=== PATIENT | male | born 1975 | race Caucasian/White ===

== ENCOUNTER → 2019-04-09 | Outpatient (REF) | payer OTHER ==
[2019-04-09 20:16] LABS: BLOOD UREA NITROGEN 5 MG/DL (7-18); CALCIUM LEVEL 8.9 MG/DL (8.5-10.1); CARBON DIOXIDE LEVEL 29 MEQ/L (21-32); CHLORIDE LEVEL 103 MEQ/L (98-107); GLOMERULAR FILTRATION RATE > 60.0 (>60); GLUCOSE, FASTING 81 MG/DL (70-100); POTASSIUM SERUM 4.3 MEQ/L (3.5-5.1); SODIUM LEVEL 140 MEQ/L (136-145)
[2019-04-09 21:22] LABS: HIV 1&2 SCREEN CENTAUR NEGATIVE (NEGATIVE)
[2019-04-11 09:52] LABS: HEPATITIS B SURFACE ANTIGEN NEGATIVE (NEGATIVE)
[2019-04-11 10:17] LABS: HEPATITIS B CORE ANTIBODY IGM NEGATIVE (NEGATIVE); HEPATITIS C VIRUS ABY INDEX 0.1 INDEX (<0.8)
[2019-04-11 10:30] LABS: HEPATITIS A ANTIBODY IGM NEGATIVE (NEGATIVE)
== END ==
LOC: M SFHCPLAZ 15:48
PROVIDERS: ATTEND Family Medicine
DX: Z11.3 Encounter for screening for infections with a predominantly sexual mode of transmission (principal); F10.10 Alcohol abuse, uncomplicated

== ENCOUNTER 2022-05-22 11:12 | Inpatient (IN) | payer MEDICAID, OTHER, SELFPAY ==
[~2022-05-22] VITALS: Ht 170.2 cm; Wt 91.6 kg
[2022-05-22] MEDS: FOLIC ACID 1 MG TAB PO SCH (09:00)
[2022-05-22] MEDS ORDERED: ONDANSETRON 4MG 2ML VIAL IV ONE (11:20)
[2022-05-22] MEDS: MORPHINE 4 MG/ML 1ML VIAL/SYRINGE IV PRN ×2 (11:30→12:04)
[2022-05-22] MEDS ORDERED: ACET-683 PO (11:39)
[2022-05-22] MEDS ORDERED: TRAZ-252 PO (11:40)
[2022-05-22] MEDS ORDERED: BOOSTRIX/ADACEL VACCINE (DIPHTH/PERTUSS/ACELL/TETANUS) 0.5ML SYR IM.IMMUN ONE (11:50)
[2022-05-22] MEDS: HYDROMORPHONE HCL 0.5 MG/ 0.5 ML SYRINGE (J1170 PER 1) IV PRN ×5 (12:29→20:09)
[2022-05-22 12:32] LABS: HEMATOCRIT 42.4 % (42.0-52.0); HEMOGLOBIN 14.8 g/dl (13.5-17.5); MEAN CORPUSCULAR HEMOGLOBIN 34.2 pg (27.0-33.0); MEAN CORPUSCULAR HGB CONC 34.9 g/dl (32.0-36.5); MEAN CORPUSCULAR VOLUME 97.9 fl (80.0-96.0); PLATELET COUNT, AUTOMATED 255 10^3/uL (150-450); RED BLOOD COUNT 4.33 10^6/uL (4.30-6.10); WHITE BLOOD COUNT 11.2 10^3/uL (4.0-10.0)
[2022-05-22 12:59] LABS: BLOOD UREA NITROGEN 10 MG/DL (7-18); CALCIUM LEVEL 9.3 MG/DL (8.5-10.1); CARBON DIOXIDE LEVEL 26 MEQ/L (21-32); CHLORIDE LEVEL 102 MEQ/L (98-107); ETHYL ALCOHOL (ETHANOL) < 0.003 % (0.000-0.010); GLOMERULAR FILTRATION RATE > 60.0 (>60); GLUCOSE, FASTING 99 MG/DL (70-100); SODIUM LEVEL 137 MEQ/L (136-145)
[2022-05-22 13:13] LABS: RSV AMPLIFICATION NEGATIVE (NEGATIVE)
[2022-05-22] MEDS ORDERED: NS 1,000 ML IV SCH (13:25)
[2022-05-22] MEDS ORDERED: HYDROMORPHONE HCL 0.5 MG/ 0.5 ML SYRINGE (J1170 PER 1) IV PRN ×2 (13:35→14:30)
[2022-05-22] MEDS ORDERED: MORPHINE 4 MG/ML 1ML VIAL/SYRINGE IV PRN (13:35)
[2022-05-22 13:46] LABS: INR 0.98; PROTHROMBIN TIME 13.4 SECONDS (12.7-14.5)
[2022-05-22 13:52] LABS: ALT/SGPT 30 U/L (12-78); BILIRUBIN,TOTAL 1.1 MG/DL (0.2-1.0); TOTAL PROTEIN 7.1 GM/DL (6.4-8.2)
[2022-05-22] MEDS ORDERED: HOME MED LIST COMPLETE! XX SCH (14:10)
[2022-05-22] MEDS ORDERED: MORPHINE 2 MG/ML 1ML VIAL IV PRN (14:30)
[2022-05-22] MEDS ORDERED: LORazepam 2 MG TAB PO PRN (14:55)
[2022-05-22] MEDS ORDERED: traZODone 100 MG TAB PO PRN (14:55)
[2022-05-22 15:30] VITALS: BP 151/95
[2022-05-22] MEDS: THIAMINE 100 MG TAB PO SCH ×2 (16:00→21:01)
[2022-05-22] MEDS ORDERED: KETOROLAC 60MG 2ML VIAL As Ordered ONE (17:55)
[2022-05-22] MEDS ORDERED: propofoL 200 MG/20 ML VIAL As Ordered ONE (17:55)
[2022-05-22] MEDS ORDERED: ONDANSETRON 4MG 2ML VIAL As Ordered ONE (17:55)
[2022-05-22] MEDS ORDERED: ROCURONIUM BROMIDE 50 MG/5 ML VIAL As Ordered ONE (17:55)
[2022-05-22] MEDS ORDERED: LIDOCAINE 2% INJ 100 MG/5 ML SYRINGE As Ordered ONE (17:55)
[2022-05-22] MEDS ORDERED: dexameTHASONE 4 MG/ML 1ML VIAL (J1100 PER 1MG) As Ordered ONE (17:55)
[2022-05-22] MEDS ORDERED: fentaNYL 250 MCG/5 ML INJECTION As Ordered ONE (17:55)
[2022-05-22] MEDS ORDERED: METOCLOPRAMIDE INJ 10MG/2ML VIAL (J2765 PER 1) As Ordered ONE (17:55)
[2022-05-22] MEDS ORDERED: MIDAZOLAM INJ 2MG/2ML VIAL (J2250 PER 1MG) As Ordered ONE (17:56)
[2022-05-22] MEDS ORDERED: BUPIVACAINE HCL 0.25% 10ML VIAL As Ordered ONE (18:18)
[2022-05-22] MEDS ORDERED: BUPIVACAINE LIPOSOME/PF 1.3% 20ML VIAL (13.3MG/ML)(EXPAREL) As Ordered ONE (18:18)
[2022-05-22] MEDS ORDERED: ceFAZolin 2 GM/D5W 50 ML IV BAG (J0690 PER 500MG) IV ONE (18:44)
[2022-05-22] MEDS ORDERED: ACETAMINOPHEN 1000MG 100ML IV BTL (OFIRMEV) (J0131 PER 10MG) As Ordered ONE (18:51)
[2022-05-22] MEDS ORDERED: SUGAMMADEX SODIUM 500 MG/5 ML VIAL (BRIDION) As Ordered ONE (19:14)
[2022-05-22] MEDS: MULTIVITAMINS/MINERALS THERAP 1 TAB PO SCH (19:22)
[2022-05-22] MEDS ORDERED: MEPERIDINE INJ 25 MG/ML VIAL (J2175) IV PRN (19:35)
[2022-05-22] MEDS ORDERED: ONDANSETRON 4MG 2ML VIAL IV PRN (19:45)
[2022-05-22] MEDS ORDERED: LR 1,000 ML IV SCH (19:45)
[2022-05-22] MEDS ORDERED: fentaNYL 100 MCG/2 ML INJECTION IV PRN (19:45)
[2022-05-22] MEDS: oxyCODONE 5MG TAB PO PRN ×2 (19:59→20:26)
[2022-05-22 20:40] VITALS: BP 157/96
[2022-05-22 20:55] VITALS: BP 156/97
[2022-05-22] MEDS: NICOTINE 21MG/24HR 1 EA TRANSDERMAL TD SCH (21:02)
[2022-05-22 21:25] VITALS: BP 147/93
[2022-05-22 22:00] VITALS: BP_SYST 137; BP_SYST 146; BP_DIAS 86; BP_DIAS 91
[2022-05-22] MEDS: CYCLOBENZAPRINE 5MG TABLET PO PRN (22:16)
[2022-05-22] MEDS: MORPHINE 2 MG/ML 1ML VIAL IV PRN (22:17)
[2022-05-22 23:00] VITALS: BP 137/86
[2022-05-23 01:00] VITALS: BP 142/90
[2022-05-23 02:00] VITALS: BP 141/90
[2022-05-23] MEDS: HYDROMORPHONE HCL 0.5 MG/ 0.5 ML SYRINGE (J1170 PER 1) IV PRN ×4 (02:03→14:02)
[2022-05-23] MEDS: ceFAZolin SOD 2 GM in IV 1 EA IV SCH ×2 (02:03→10:30)
[2022-05-23] MEDS: CYCLOBENZAPRINE 5MG TABLET PO PRN (04:54)
[2022-05-23 06:00] VITALS: BP 152/94
[2022-05-23 06:49] LABS: HEMATOCRIT 38.4 % (42.0-52.0); HEMOGLOBIN 13.1 g/dl (13.5-17.5); MEAN CORPUSCULAR HEMOGLOBIN 34.1 pg (27.0-33.0); MEAN CORPUSCULAR HGB CONC 34.1 g/dl (32.0-36.5); PLATELET COUNT, AUTOMATED 199 10^3/uL (150-450); RED BLOOD COUNT 3.84 10^6/uL (4.30-6.10); WHITE BLOOD COUNT 7.5 10^3/uL (4.0-10.0)
[2022-05-23 07:10] LABS: BLOOD UREA NITROGEN 13 MG/DL (7-18); CALCIUM LEVEL 8.6 MG/DL (8.5-10.1); CARBON DIOXIDE LEVEL 25 MEQ/L (21-32); CHLORIDE LEVEL 105 MEQ/L (98-107); CREATININE FOR GFR 0.91 MG/DL (0.70-1.30); GLOMERULAR FILTRATION RATE > 60.0 (>60); GLUCOSE, FASTING 122 MG/DL (70-100); POTASSIUM SERUM 3.8 MEQ/L (3.5-5.1); SODIUM LEVEL 137 MEQ/L (136-145)
[2022-05-23] MEDS ORDERED: ONDANSETRON 4MG 2ML VIAL IV PRN (08:00)
[2022-05-23] MEDS: MULTIVITAMINS/MINERALS THERAP 1 TAB PO SCH (08:18)
[2022-05-23] MEDS: THIAMINE 100 MG TAB PO SCH (08:18)
[2022-05-23] MEDS: FOLIC ACID 1 MG TAB PO SCH (08:18)
[2022-05-23] MEDS: MORPHINE 2 MG/ML 1ML VIAL IV PRN (08:35)
[2022-05-23] MEDS: NICOTINE 21MG/24HR 1 EA TRANSDERMAL TD SCH (09:00)
[2022-05-23] MEDS ORDERED: SERO50TA PO (12:14)
[2022-05-23] MEDS ORDERED: ACET650T15 PO (12:14)
[2022-05-23] MEDS ORDERED: XARE10TA PO (12:14)
[2022-05-23] MEDS ORDERED: OXYC1TAB23 PO (12:14)
[2022-05-23] MEDS ORDERED: ASPI-551 PO (12:14)
[2022-05-23] MEDS ORDERED: RIVAROXABAN 10MG TAB (XARELTO) PO SCH (18:00)
[2022-06-07] MEDS ORDERED: ASPIRIN 81MG ENTERIC TABLET PO SCH (09:00)
== END 2022-05-23 14:50 | disposition home or self-care (01) | DRG 308 ==
LOC: M ED 11:12 → M ED INP 13:25 → ENRESERV 14:37 → M MS5PR 15:20
PROVIDERS: ADMIT Internal Medicine; ATTEND Internal Medicine
PROC: 0QS7XZZ Reposition Left Upper Femur, External Approach (ICD-10-PCS; 2022-05-22)
PROC: 0QS706Z Reposition Left Upper Femur with Intramedullary Internal Fixation Device, Open Approach (ICD-10-PCS; principal; 2022-05-22 13:07)
DX: S72.145A Nondisplaced intertrochanteric fracture of left femur, initial encounter for closed fracture (principal); W10.8XXA Fall (on) (from) other stairs and steps, initial encounter; Y92.009 Unspecified place in unspecified non-institutional (private) residence as the place of occurrence of the external cause; G47.00 Insomnia, unspecified; F17.200 Nicotine dependence, unspecified, uncomplicated; F10.10 Alcohol abuse, uncomplicated; Z20.822 Contact with and (suspected) exposure to COVID-19

== ENCOUNTER → 2022-05-27 | Outpatient (CLI) | payer MEDICAID ==
[~2022-05-27] MED LIST: ACET-683 PO; ACET650T15 PO; ASPI-551 PO; OXYC1TAB23 PO; SERO50TA PO; TRAZ-252 PO; XARE10TA PO
== END ==
LOC: M SOG 13:36
PROVIDERS: ATTEND Orthopaedic Surgery
DX: S72.001A Fracture of unspecified part of neck of right femur, initial encounter for closed fracture (principal)

== ENCOUNTER → 2022-06-08 | Outpatient (CLI) | payer MEDICAID | LOC: M SOG 09:00 | PROVIDERS: ATTEND Orthopaedic Surgery | DX: S72.002D Fracture of unspecified part of neck of left femur, subsequent encounter for closed fracture with routine healing (principal) ==

== ENCOUNTER → 2022-06-21 | Outpatient (CLI) | payer MEDICAID | LOC: M SOG 09:09 | PROVIDERS: ATTEND Orthopaedic Surgery | DX: S72.002D Fracture of unspecified part of neck of left femur, subsequent encounter for closed fracture with routine healing (principal); Z96.698 Presence of other orthopedic joint implants ==

== ENCOUNTER → 2022-07-07 | Outpatient (CLI) | payer MEDICAID | LOC: M SOG 08:06 | PROVIDERS: ATTEND Orthopaedic Surgery | DX: S72.002D Fracture of unspecified part of neck of left femur, subsequent encounter for closed fracture with routine healing (principal) ==

== ENCOUNTER 2022-07-17 21:04 | Inpatient (IN) | payer MEDICAID, OTHER ==
[~2022-07-17] VITALS: Ht 167.6 cm; Wt 90.9 kg
[2022-07-17 21:26] LABS: BASO # 0.1 10^3/uL (0.0-0.2); BASO % 0.6 % (0.0-1.0); EOS # 0.1 10^3/uL (0.0-0.5); EOS % 1.2 % (0.0-3.0); HEMATOCRIT 43.5 % (42.0-52.0); HEMOGLOBIN 14.6 g/dl (13.5-17.5); LYMPH # 3.1 10^3/uL (1.5-5.0); LYMPH % 28.6 % (24.0-44.0); MEAN CORPUSCULAR HEMOGLOBIN 33.6 pg (27.0-33.0); MEAN CORPUSCULAR HGB CONC 33.6 g/dl (32.0-36.5); MEAN CORPUSCULAR VOLUME 100.2 fl (80.0-96.0); MONO # 0.7 10^3/uL (0.0-0.8); MONO % 6.7 % (2.0-8.0); NEUTROPHILS # 6.9 10^3/uL (1.5-8.5); NEUTROPHILS % 62.5 % (36.0-66.0); PLATELET COUNT, AUTOMATED 307 10^3/uL (150-450); RED BLOOD COUNT 4.34 10^6/uL (4.30-6.10)
[2022-07-17] MEDS ORDERED: MORPHINE 4 MG/ML 1ML VIAL/SYRINGE IV ONE (21:50)
[2022-07-17] MEDS ORDERED: HYDROMORPHONE HCL 0.5 MG/ 0.5 ML SYRINGE (J1170 PER 1) IV ONE ×2 (22:00→23:40)
[2022-07-17 22:37] LABS: BLOOD UREA NITROGEN 12 MG/DL (7-18); CARBON DIOXIDE LEVEL 20 MEQ/L (21-32); CHLORIDE LEVEL 103 MEQ/L (98-107); CREATININE FOR GFR 1.12 MG/DL (0.70-1.30); GLOMERULAR FILTRATION RATE > 60.0 (>60); GLUCOSE, FASTING 97 MG/DL (70-100); POTASSIUM SERUM 3.9 MEQ/L (3.5-5.1); SODIUM LEVEL 136 MEQ/L (136-145)
[2022-07-17 22:38] LABS: CALCIUM LEVEL 8.7 MG/DL (8.5-10.1)
[2022-07-17] MEDS ORDERED: fentaNYL 100 MCG/2 ML INJECTION IV PRN (23:15)
[2022-07-17] MEDS ORDERED: CYCL-707 PO (23:54)
[2022-07-17] MEDS ORDERED: HOME MED LIST COMPLETE! XX SCH (23:55)
[2022-07-18] VITALS (7 sets, daily range): BP systolic 135–156; BP diastolic 91–118
[2022-07-18] MEDS ORDERED: HYDROMORPHONE HCL 0.5 MG/ 0.5 ML SYRINGE (J1170 PER 1) IV ONE (01:25)
[2022-07-18] MEDS ORDERED: zolPIDEM TARTRATE 5 MG TAB PO ONE (02:00)
[2022-07-18 02:01] LABS: RSV AMPLIFICATION NEGATIVE (NEGATIVE)
[2022-07-18 02:12] LABS: ETHYL ALCOHOL (ETHANOL) 0.127 % (0.000-0.010)
[2022-07-18] MEDS: CYCLOBENZAPRINE 10MG TABLET PO PRN ×2 (02:20→11:49)
[2022-07-18] MEDS: MORPHINE 4 MG/ML 1ML VIAL/SYRINGE IV PRN ×3 (03:12→11:12)
[2022-07-18] MEDS ORDERED: KETOROLAC 30 MG/ML 1ML VIAL IV ONE (04:00)
[2022-07-18] MEDS ORDERED: MORPHINE 4 MG/ML 1ML VIAL/SYRINGE IV PRN (05:00)
[2022-07-18 05:52] LABS: HEMATOCRIT 39.3 % (42.0-52.0); HEMOGLOBIN 13.3 g/dl (13.5-17.5); MEAN CORPUSCULAR HEMOGLOBIN 33.3 pg (27.0-33.0); MEAN CORPUSCULAR HGB CONC 33.8 g/dl (32.0-36.5); MEAN CORPUSCULAR VOLUME 98.3 fl (80.0-96.0); PLATELET COUNT, AUTOMATED 245 10^3/uL (150-450); WHITE BLOOD COUNT 10.8 10^3/uL (4.0-10.0)
[2022-07-18 06:30] LABS: ALBUMIN 3.5 GM/DL (3.2-5.2); ALT/SGPT 34 U/L (12-78); BILIRUBIN,TOTAL 0.5 MG/DL (0.2-1.0); BLOOD UREA NITROGEN 12 MG/DL (7-18); CALCIUM LEVEL 8.6 MG/DL (8.5-10.1); CARBON DIOXIDE LEVEL 27 MEQ/L (21-32); CHLORIDE LEVEL 106 MEQ/L (98-107); CREATININE FOR GFR 1.01 MG/DL (0.70-1.30); GLOMERULAR FILTRATION RATE > 60.0 (>60); GLUCOSE, FASTING 112 MG/DL (70-100); POTASSIUM SERUM 4.3 MEQ/L (3.5-5.1); SODIUM LEVEL 138 MEQ/L (136-145); TOTAL PROTEIN 6.4 GM/DL (6.4-8.2)
[2022-07-18 12:21] LABS: HEMATOCRIT 39.7 % (42.0-52.0); HEMOGLOBIN 13.7 g/dl (13.5-17.5)
[2022-07-18] MEDS ORDERED: propofoL 200 MG/20 ML VIAL As Ordered ONE ×2 (12:25→18:48)
[2022-07-18] MEDS ORDERED: ROCURONIUM BROMIDE 50 MG/5 ML VIAL As Ordered ONE (12:25)
[2022-07-18] MEDS ORDERED: LIDOCAINE 2% 100MG/5ML SDV (FOR ANES.) As Ordered ONE (12:25)
[2022-07-18] MEDS ORDERED: MIDAZOLAM INJ 2MG/2ML VIAL (J2250 PER 1MG) As Ordered ONE ×3 (12:26→19:05)
[2022-07-18] MEDS ORDERED: ONDANSETRON 4MG 2ML VIAL As Ordered ONE (12:26)
[2022-07-18] MEDS ORDERED: fentaNYL 250 MCG/5 ML INJECTION As Ordered ONE (12:26)
[2022-07-18] MEDS ORDERED: dexameTHASONE 4 MG/ML 1ML VIAL (J1100 PER 1MG) As Ordered ONE (12:26)
[2022-07-18] MEDS ORDERED: MORPHINE 2 MG/ML 1ML VIAL IV ONE (12:50)
[2022-07-18] MEDS ORDERED: ceFAZolin 2 GM/D5W 50 ML IV BAG (J0690 PER 500MG) As Ordered ONE (13:50)
[2022-07-18] MEDS ORDERED: TRANEXAMIC ACID 100 MG/ML 10ML VIAL As Ordered ONE ×2 (13:50→19:17)
[2022-07-18] MEDS ORDERED: HYDROmorphone HCL 2MG/ML 1ML VIAL As Ordered ONE (13:52)
[2022-07-18] MEDS ORDERED: VECURONIUM BROMIDE 10MG VIAL As Ordered ONE (15:15)
[2022-07-18] MEDS ORDERED: BUPIVACAINE HCL 0.25% 10ML VIAL As Ordered ONE (18:44)
[2022-07-18] MEDS ORDERED: BUPIVACAINE LIPOSOME/PF 1.3% 20ML VIAL (13.3MG/ML)(EXPAREL) As Ordered ONE (18:44)
[2022-07-18] MEDS ORDERED: METHOCARBAMOL 1,000 MG/10 ML VIAL (J2800) As Ordered ONE (18:51)
[2022-07-18] MEDS ORDERED: KETOROLAC 60MG 2ML VIAL As Ordered ONE (18:58)
[2022-07-18] MEDS ORDERED: SUGAMMADEX SODIUM 500 MG/5 ML VIAL (BRIDION) As Ordered ONE (18:59)
[2022-07-18] MEDS ORDERED: HYDROMORPHONE HCL 0.5 MG/ 0.5 ML SYRINGE (J1170 PER 1) IV PRN (19:35)
[2022-07-18] MEDS ORDERED: oxyCODONE 5MG TAB PO PRN (19:35)
[2022-07-18] MEDS ORDERED: ONDANSETRON 4MG 2ML VIAL IV PRN (19:35)
[2022-07-18] MEDS ORDERED: fentaNYL 100 MCG/2 ML INJECTION IV PRN (19:35)
[2022-07-18] MEDS ORDERED: LR 1,000 ML IV SCH (19:35)
[2022-07-18 20:30] LABS: HEMATOCRIT 34.9 % (42.0-52.0)
[2022-07-18 20:47] LABS: HEMOGLOBIN 11.6 g/dl (13.5-17.5)
[2022-07-18] MEDS ORDERED: LR 1,000 ML IV ONE (22:35)
[2022-07-18] MEDS: RAMELTEON 8 MG TAB (ROZEREM) PO SCH (22:39)
[2022-07-19] VITALS (9 sets, daily range): BP systolic 125–134; BP diastolic 83–92
[2022-07-19] MEDS: CYCLOBENZAPRINE 10MG TABLET PO PRN ×3 (03:48→20:00)
[2022-07-19] MEDS: MORPHINE 4 MG/ML 1ML VIAL/SYRINGE IV PRN ×5 (03:48→23:58)
[2022-07-19 06:15] LABS: BASO % 0.1 % (0.0-1.0); HEMATOCRIT 27.8 % (42.0-52.0); LYMPH # 0.9 10^3/uL (1.5-5.0); LYMPH % 9.8 % (24.0-44.0); MEAN CORPUSCULAR HGB CONC 33.5 g/dl (32.0-36.5); MEAN CORPUSCULAR VOLUME 98.6 fl (80.0-96.0); NEUTROPHILS # 7.3 10^3/uL (1.5-8.5); NEUTROPHILS % 78.7 % (36.0-66.0); PLATELET COUNT, AUTOMATED 234 10^3/uL (150-450); RED BLOOD COUNT 2.82 10^6/uL (4.30-6.10); WHITE BLOOD COUNT 9.2 10^3/uL (4.0-10.0)
[2022-07-19 06:24] LABS: HEMOGLOBIN 9.3 g/dl (13.5-17.5)
[2022-07-19 06:59] LABS: ALBUMIN 2.7 GM/DL (3.2-5.2); ALT/SGPT 77 U/L (12-78); BILIRUBIN,TOTAL 0.9 MG/DL (0.2-1.0); BLOOD UREA NITROGEN 13 MG/DL (7-18); CALCIUM LEVEL 8.3 MG/DL (8.5-10.1); CARBON DIOXIDE LEVEL 23 MEQ/L (21-32); CHLORIDE LEVEL 104 MEQ/L (98-107); CREATININE FOR GFR 0.95 MG/DL (0.70-1.30); GLOMERULAR FILTRATION RATE > 60.0 (>60); GLUCOSE, FASTING 137 MG/DL (70-100); MAGNESIUM LEVEL 1.8 MG/DL (1.8-2.4); POTASSIUM SERUM 4.1 MEQ/L (3.5-5.1); SODIUM LEVEL 135 MEQ/L (136-145)
[2022-07-19] MEDS ORDERED: ACETAMINOPHEN TAB 650MG DOSE (2X325MG) PO ONE (07:00)
[2022-07-19] MEDS ORDERED: LORazepam 2 MG TAB PO PRN (11:20)
[2022-07-19] MEDS ORDERED: MORPHINE 2 MG/ML 1ML VIAL IV ONE (11:45)
[2022-07-19] MEDS: FOLIC ACID 1MG TAB PO SCH (11:47)
[2022-07-19] MEDS: THIAMINE 100 MG TAB PO SCH ×2 (11:47→19:59)
[2022-07-19] MEDS: MULTIVITAMINS/MINERALS THERAP 1 TAB PO SCH (11:47)
[2022-07-19] MEDS ORDERED: ACETAMINOPHEN TAB 650MG DOSE (2X325MG) PO PRN (19:05)
[2022-07-19] MEDS ORDERED: zolPIDEM TARTRATE 5 MG TAB PO PRN (19:05)
[2022-07-19] MEDS: RAMELTEON 8 MG TAB (ROZEREM) PO SCH (19:59)
[2022-07-20] VITALS (7 sets, daily range): BP systolic 113–128; BP diastolic 75–86
[2022-07-20] MEDS ORDERED: LR 1,000 ML IV SCH (02:00)
[2022-07-20] MEDS: CYCLOBENZAPRINE 10MG TABLET PO PRN ×3 (03:10→20:10)
[2022-07-20] MEDS ORDERED: MORPHINE 4 MG/ML 1ML VIAL/SYRINGE IV ONE (03:25)
[2022-07-20 06:27] LABS: HEMATOCRIT 23.1 % (42.0-52.0); HEMOGLOBIN 7.7 g/dl (13.5-17.5); MEAN CORPUSCULAR HEMOGLOBIN 33.2 pg (27.0-33.0); MEAN CORPUSCULAR HGB CONC 33.3 g/dl (32.0-36.5); MEAN CORPUSCULAR VOLUME 99.6 fl (80.0-96.0); PLATELET COUNT, AUTOMATED 181 10^3/uL (150-450); RED BLOOD COUNT 2.32 10^6/uL (4.30-6.10); WHITE BLOOD COUNT 7.5 10^3/uL (4.0-10.0)
[2022-07-20 07:07] LABS: BLOOD UREA NITROGEN 8 MG/DL (7-18); CALCIUM LEVEL 7.6 MG/DL (8.5-10.1); CARBON DIOXIDE LEVEL 27 MEQ/L (21-32); CHLORIDE LEVEL 106 MEQ/L (98-107); CREATININE FOR GFR 0.63 MG/DL (0.70-1.30); GLOMERULAR FILTRATION RATE > 60.0 (>60); GLUCOSE, FASTING 112 MG/DL (70-100); SODIUM LEVEL 138 MEQ/L (136-145)
[2022-07-20] MEDS: ASPIRIN 81MG ENTERIC TABLET PO SCH (08:37)
[2022-07-20] MEDS: THIAMINE 100 MG TAB PO SCH ×2 (08:37→20:10)
[2022-07-20] MEDS: MULTIVITAMINS/MINERALS THERAP 1 TAB PO SCH (08:37)
[2022-07-20] MEDS: FOLIC ACID 1MG TAB PO SCH (08:37)
[2022-07-20] MEDS: HEPARIN SOD (PORCINE) 5000UNITS/ML 1ML VIAL/SYRINGE SC SCH ×3 (08:38→20:10)
[2022-07-20] MEDS: MORPHINE 4 MG/ML 1ML VIAL/SYRINGE IV PRN (08:38)
[2022-07-20 09:08] LABS: HEMATOCRIT 25.2 % (42.0-52.0); HEMOGLOBIN 8.4 g/dl (13.5-17.5)
[2022-07-20 09:56] LABS: PERCENT SATURATION 9.5 % (19.7-50.0)
[2022-07-20] MEDS ORDERED: PERCOCET 5MG/325MG TAB PO ONE (11:05)
[2022-07-20] MEDS ORDERED: HYDROMORPHONE HCL 0.5 MG/ 0.5 ML SYRINGE (J1170 PER 1) IV ONE (11:05)
[2022-07-20] MEDS: KETOROLAC 30 MG/ML 1ML VIAL IV SCH ×2 (11:22→17:18)
[2022-07-20] MEDS: PERCOCET 5MG/325MG TAB PO PRN ×2 (16:12→20:10)
[2022-07-20 17:50] LABS: HEMATOCRIT 22.8 % (42.0-52.0); HEMOGLOBIN 7.7 g/dl (13.5-17.5)
[2022-07-20] MEDS: traZODone 100 MG TAB PO SCH (20:10)
[2022-07-21] VITALS (9 sets, daily range): BP systolic 108–133; BP diastolic 64–89
[2022-07-21] MEDS: KETOROLAC 30 MG/ML 1ML VIAL IV SCH ×5 (00:33→23:12)
[2022-07-21 00:34] LABS: HEMATOCRIT 20.4 % (42.0-52.0)
[2022-07-21] MEDS: CYCLOBENZAPRINE 10MG TABLET PO PRN ×2 (05:20→18:52)
[2022-07-21] MEDS: PERCOCET 5MG/325MG TAB PO PRN ×5 (05:21→23:11)
[2022-07-21 05:57] LABS: MEAN CORPUSCULAR HEMOGLOBIN 33.8 pg (27.0-33.0); MEAN CORPUSCULAR HGB CONC 33.3 g/dl (32.0-36.5); MEAN CORPUSCULAR VOLUME 101.4 fl (80.0-96.0); PLATELET COUNT, AUTOMATED 183 10^3/uL (150-450); RED BLOOD COUNT 2.07 10^6/uL (4.30-6.10); WHITE BLOOD COUNT 4.4 10^3/uL (4.0-10.0)
[2022-07-21 06:37] LABS: BLOOD UREA NITROGEN 10 MG/DL (7-18); CARBON DIOXIDE LEVEL 30 MEQ/L (21-32); CHLORIDE LEVEL 106 MEQ/L (98-107); CREATININE FOR GFR 0.72 MG/DL (0.70-1.30); GLOMERULAR FILTRATION RATE > 60.0 (>60); GLUCOSE, FASTING 107 MG/DL (70-100); POTASSIUM SERUM 4.3 MEQ/L (3.5-5.1); SODIUM LEVEL 139 MEQ/L (136-145)
[2022-07-21 06:38] LABS: CALCIUM LEVEL 8.4 MG/DL (8.5-10.1)
[2022-07-21] MEDS ORDERED: HYDROMORPHONE HCL 0.5 MG/ 0.5 ML SYRINGE (J1170 PER 1) IV ONE (07:25)
[2022-07-21] MEDS: THIAMINE 100 MG TAB PO SCH ×2 (08:05→22:24)
[2022-07-21] MEDS: ASPIRIN 81MG ENTERIC TABLET PO SCH (08:05)
[2022-07-21] MEDS: FOLIC ACID 1MG TAB PO SCH (08:05)
[2022-07-21] MEDS: MULTIVITAMINS/MINERALS THERAP 1 TAB PO SCH (08:05)
[2022-07-21] MEDS: HEPARIN SOD (PORCINE) 5000UNITS/ML 1ML VIAL/SYRINGE SC SCH ×2 (08:06→21:00)
[2022-07-21 14:17] LABS: HEMATOCRIT 23.9 % (42.0-52.0); HEMOGLOBIN 8.1 g/dl (13.5-17.5)
[2022-07-21] MEDS ORDERED: COVID-19 VACC, MRNA(PFIZER)/PF 30MCG 0.3ML VIAL (EUA) IM ONE (17:00)
[2022-07-21 17:46] LABS: HEMATOCRIT 23.8 % (42.0-52.0)
[2022-07-21] MEDS: ONDANSETRON 4MG ORAL DISINTEGRATING TAB PO PRN (21:57)
[2022-07-21] MEDS: traZODone 100 MG TAB PO SCH (22:25)
[2022-07-21] MEDS: SENOKOT S TAB PO PRN (22:25)
[2022-07-22 05:37] VITALS: BP 124/81
[2022-07-22] MEDS: CYCLOBENZAPRINE 10MG TABLET PO PRN ×3 (05:41→22:17)
[2022-07-22] MEDS: KETOROLAC 30 MG/ML 1ML VIAL IV SCH (05:42)
[2022-07-22] MEDS: PERCOCET 5MG/325MG TAB PO PRN ×4 (05:43→22:17)
[2022-07-22 05:57] LABS: HEMATOCRIT 23.8 % (42.0-52.0); MEAN CORPUSCULAR HEMOGLOBIN 33.1 pg (27.0-33.0); MEAN CORPUSCULAR HGB CONC 33.6 g/dl (32.0-36.5); MEAN CORPUSCULAR VOLUME 98.3 fl (80.0-96.0); PLATELET COUNT, AUTOMATED 222 10^3/uL (150-450); RED BLOOD COUNT 2.42 10^6/uL (4.30-6.10); WHITE BLOOD COUNT 5.9 10^3/uL (4.0-10.0)
[2022-07-22 06:00] VITALS: BP 124/81
[2022-07-22 06:38] LABS: BLOOD UREA NITROGEN 12 MG/DL (7-18); CALCIUM LEVEL 8.7 MG/DL (8.5-10.1); CARBON DIOXIDE LEVEL 27 MEQ/L (21-32); CHLORIDE LEVEL 107 MEQ/L (98-107); CREATININE FOR GFR 0.73 MG/DL (0.70-1.30); GLOMERULAR FILTRATION RATE > 60.0 (>60); GLUCOSE, FASTING 102 MG/DL (70-100); POTASSIUM SERUM 4.2 MEQ/L (3.5-5.1); SODIUM LEVEL 139 MEQ/L (136-145)
[2022-07-22] MEDS: ASPIRIN 81MG ENTERIC TABLET PO SCH (08:53)
[2022-07-22] MEDS: FERROUS SULFATE 325MG TAB PO SCH (08:53)
[2022-07-22] MEDS: MULTIVITAMINS/MINERALS THERAP 1 TAB PO SCH (08:53)
[2022-07-22] MEDS: ASCORBIC ACID 500 MG TAB PO SCH (08:53)
[2022-07-22] MEDS: FOLIC ACID 1MG TAB PO SCH (08:53)
[2022-07-22] MEDS: HEPARIN SOD (PORCINE) 5000UNITS/ML 1ML VIAL/SYRINGE SC SCH ×2 (08:54→21:00)
[2022-07-22] MEDS: ONDANSETRON 4MG ORAL DISINTEGRATING TAB PO PRN ×2 (08:54→22:47)
[2022-07-22] MEDS ORDERED: HYDROMORPHONE HCL 0.5 MG/ 0.5 ML SYRINGE (J1170 PER 1) IV ONE ×2 (10:00→16:00)
[2022-07-22] MEDS ORDERED: HYDROmorphone 2 MG TAB PO PRN (10:10)
[2022-07-22] MEDS: IBUPROFEN 400MG TAB PO SCH ×2 (12:36→17:25)
[2022-07-22 14:00] VITALS: BP 143/89
[2022-07-22] MEDS: BISACODYL 5 MG TAB PO PRN (14:17)
[2022-07-22 17:33] LABS: HEMATOCRIT 26.6 % (42.0-52.0); HEMOGLOBIN 8.8 g/dl (13.5-17.5)
[2022-07-22 18:00] VITALS: BP 138/90
[2022-07-22] MEDS: traZODone 100 MG TAB PO SCH (22:17)
[2022-07-22] MEDS: SENOKOT S TAB PO PRN (22:21)
[2022-07-23] MEDS: ONDANSETRON 4MG ORAL DISINTEGRATING TAB PO PRN ×2 (04:54→22:17)
[2022-07-23] MEDS: PERCOCET 5MG/325MG TAB PO PRN ×3 (04:55→22:18)
[2022-07-23 05:33] VITALS: BP 131/68
[2022-07-23 05:58] LABS: HEMATOCRIT 25.2 % (42.0-52.0); HEMOGLOBIN 8.8 g/dl (13.5-17.5); MEAN CORPUSCULAR HEMOGLOBIN 33.8 pg (27.0-33.0); MEAN CORPUSCULAR HGB CONC 34.9 g/dl (32.0-36.5); MEAN CORPUSCULAR VOLUME 96.9 fl (80.0-96.0); PLATELET COUNT, AUTOMATED 267 10^3/uL (150-450); WHITE BLOOD COUNT 6.6 10^3/uL (4.0-10.0)
[2022-07-23 06:20] LABS: BLOOD UREA NITROGEN 9 MG/DL (7-18); CALCIUM LEVEL 8.9 MG/DL (8.5-10.1); CARBON DIOXIDE LEVEL 29 MEQ/L (21-32); CHLORIDE LEVEL 101 MEQ/L (98-107); CREATININE FOR GFR 0.76 MG/DL (0.70-1.30); GLOMERULAR FILTRATION RATE > 60.0 (>60); GLUCOSE, FASTING 108 MG/DL (70-100); POTASSIUM SERUM 4.3 MEQ/L (3.5-5.1); SODIUM LEVEL 134 MEQ/L (136-145)
[2022-07-23] MEDS: CYCLOBENZAPRINE 10MG TABLET PO PRN ×2 (06:23→14:49)
[2022-07-23] MEDS: FERROUS SULFATE 325MG TAB PO SCH (08:35)
[2022-07-23] MEDS: ASCORBIC ACID 500 MG TAB PO SCH (08:35)
[2022-07-23] MEDS: MULTIVITAMINS/MINERALS THERAP 1 TAB PO SCH (08:35)
[2022-07-23] MEDS: MOM 30ML SUSPENSION UDC PO PRN (08:35)
[2022-07-23] MEDS: ASPIRIN 81MG ENTERIC TABLET PO SCH (08:35)
[2022-07-23] MEDS: FOLIC ACID 1MG TAB PO SCH (08:35)
[2022-07-23] MEDS: SENOKOT S TAB PO PRN (08:35)
[2022-07-23] MEDS: IBUPROFEN 400MG TAB PO SCH ×3 (08:35→18:07)
[2022-07-23] MEDS: HEPARIN SOD (PORCINE) 5000UNITS/ML 1ML VIAL/SYRINGE SC SCH ×2 (08:36→21:00)
[2022-07-23] MEDS ORDERED: MIRALAX *UNIT DOSE* 17GM PACKET PO PRN ×2 (11:20→11:25)
[2022-07-23] MEDS ORDERED: MAGNESIUM CITRATE 300 ML BTL PO ONE (11:25)
[2022-07-23] MEDS: traZODone 100 MG TAB PO SCH (22:17)
[2022-07-24] MEDS: CYCLOBENZAPRINE 10MG TABLET PO PRN ×3 (03:13→21:08)
[2022-07-24] MEDS: PERCOCET 5MG/325MG TAB PO PRN ×3 (03:20→18:37)
[2022-07-24] MEDS: HYDROmorphone 4MG TABLET PO PRN ×4 (05:14→22:10)
[2022-07-24 05:20] VITALS: BP 127/71
[2022-07-24 06:09] LABS: HEMATOCRIT 24.9 % (42.0-52.0); HEMOGLOBIN 8.3 g/dl (13.5-17.5); MEAN CORPUSCULAR HEMOGLOBIN 32.4 pg (27.0-33.0); MEAN CORPUSCULAR HGB CONC 33.3 g/dl (32.0-36.5); MEAN CORPUSCULAR VOLUME 97.3 fl (80.0-96.0); PLATELET COUNT, AUTOMATED 295 10^3/uL (150-450); RED BLOOD COUNT 2.56 10^6/uL (4.30-6.10); WHITE BLOOD COUNT 6.8 10^3/uL (4.0-10.0)
[2022-07-24 06:47] LABS: BLOOD UREA NITROGEN 11 MG/DL (7-18); CALCIUM LEVEL 8.6 MG/DL (8.5-10.1); CARBON DIOXIDE LEVEL 30 MEQ/L (21-32); CHLORIDE LEVEL 103 MEQ/L (98-107); CREATININE FOR GFR 0.83 MG/DL (0.70-1.30); GLOMERULAR FILTRATION RATE > 60.0 (>60); GLUCOSE, FASTING 113 MG/DL (70-100); POTASSIUM SERUM 4.2 MEQ/L (3.5-5.1); SODIUM LEVEL 137 MEQ/L (136-145)
[2022-07-24] MEDS: ASPIRIN 81MG ENTERIC TABLET PO SCH (08:12)
[2022-07-24] MEDS: FERROUS SULFATE 325MG TAB PO SCH (08:12)
[2022-07-24] MEDS: ASCORBIC ACID 500 MG TAB PO SCH (08:12)
[2022-07-24] MEDS: IBUPROFEN 400MG TAB PO SCH ×3 (08:13→17:19)
[2022-07-24] MEDS: FOLIC ACID 1MG TAB PO SCH (08:14)
[2022-07-24] MEDS: MULTIVITAMINS/MINERALS THERAP 1 TAB PO SCH (08:14)
[2022-07-24] MEDS: HEPARIN SOD (PORCINE) 5000UNITS/ML 1ML VIAL/SYRINGE SC SCH ×2 (08:26→21:00)
[2022-07-24] MEDS: ONDANSETRON 4MG ORAL DISINTEGRATING TAB PO PRN ×2 (12:04→22:05)
[2022-07-24] MEDS ORDERED: traZODone 100 MG TAB PO SCH (21:00)
[2022-07-24] MEDS: zolPIDEM TARTRATE 5 MG TAB PO SCH (21:09)
[2022-07-25] MEDS: PERCOCET 5MG/325MG TAB PO PRN ×2 (04:07→08:28)
[2022-07-25] MEDS: CYCLOBENZAPRINE 10MG TABLET PO PRN (05:45)
[2022-07-25] MEDS: HYDROmorphone 4MG TABLET PO PRN (05:45)
[2022-07-25] MEDS: MOM 30ML SUSPENSION UDC PO PRN (05:51)
[2022-07-25] MEDS: ONDANSETRON 4MG ORAL DISINTEGRATING TAB PO PRN (05:51)
[2022-07-25 06:16] LABS: HEMOGLOBIN 8.7 g/dl (13.5-17.5); MEAN CORPUSCULAR HEMOGLOBIN 33.2 pg (27.0-33.0); MEAN CORPUSCULAR HGB CONC 33.5 g/dl (32.0-36.5); MEAN CORPUSCULAR VOLUME 99.2 fl (80.0-96.0); PLATELET COUNT, AUTOMATED 341 10^3/uL (150-450); RED BLOOD COUNT 2.62 10^6/uL (4.30-6.10); WHITE BLOOD COUNT 5.5 10^3/uL (4.0-10.0)
[2022-07-25 06:56] LABS: BLOOD UREA NITROGEN 13 MG/DL (7-18); CALCIUM LEVEL 8.6 MG/DL (8.5-10.1); CARBON DIOXIDE LEVEL 30 MEQ/L (21-32); CHLORIDE LEVEL 104 MEQ/L (98-107); GLOMERULAR FILTRATION RATE > 60.0 (>60); GLUCOSE, FASTING 104 MG/DL (70-100); POTASSIUM SERUM 4.3 MEQ/L (3.5-5.1); SODIUM LEVEL 138 MEQ/L (136-145)
[2022-07-25] MEDS: FERROUS SULFATE 325MG TAB PO SCH (08:14)
[2022-07-25] MEDS: ASCORBIC ACID 500 MG TAB PO SCH (08:14)
[2022-07-25] MEDS: IBUPROFEN 400MG TAB PO SCH ×3 (08:14→17:32)
[2022-07-25] MEDS: MULTIVITAMINS/MINERALS THERAP 1 TAB PO SCH (08:14)
[2022-07-25] MEDS: FOLIC ACID 1MG TAB PO SCH (08:15)
[2022-07-25] MEDS: ASPIRIN 81MG ENTERIC TABLET PO SCH (08:15)
[2022-07-25] MEDS: HEPARIN SOD (PORCINE) 5000UNITS/ML 1ML VIAL/SYRINGE SC SCH ×2 (08:23→20:37)
[2022-07-25] MEDS: SENOKOT S TAB PO PRN (08:28)
[2022-07-25] MEDS ORDERED: oxyCODONE 15 MG CR TAB PO SCH (09:05)
[2022-07-25] MEDS ORDERED: NALOXONE INJ 0.4MG/1ML VIAL (J2310 PER 1MG) IV PRN (09:10)
[2022-07-25] MEDS ORDERED: oxyCODONE 5MG TAB PO PRN (09:10)
[2022-07-25] MEDS ORDERED: oxyCODONE 15 MG CR TAB PO ONE ×2 (09:20→12:00)
[2022-07-25] MEDS ORDERED: oxyCODONE 5MG TAB PO ONE ×3 (09:30→20:00)
[2022-07-25] MEDS ORDERED: ONDANSETRON 4MG ORAL DISINTEGRATING TAB SL ONE (12:00)
[2022-07-25] MEDS: BISACODYL 5 MG TAB PO PRN (14:56)
[2022-07-25] MEDS ORDERED: ONDANSETRON 4MG ORAL DISINTEGRATING TAB SL PRN (20:00)
[2022-07-25] MEDS: zolPIDEM TARTRATE 5 MG TAB PO SCH (20:36)
[2022-07-25] MEDS ORDERED: traZODone 100 MG TAB PO SCH (21:00)
[2022-07-26 05:37] VITALS: BP 152/90
[2022-07-26 05:47] LABS: HEMATOCRIT 27.9 % (42.0-52.0); HEMOGLOBIN 9.1 g/dl (13.5-17.5); MEAN CORPUSCULAR HEMOGLOBIN 32.5 pg (27.0-33.0); MEAN CORPUSCULAR HGB CONC 32.6 g/dl (32.0-36.5); MEAN CORPUSCULAR VOLUME 99.6 fl (80.0-96.0); PLATELET COUNT, AUTOMATED 431 10^3/uL (150-450); WHITE BLOOD COUNT 6.3 10^3/uL (4.0-10.0)
[2022-07-26 06:31] LABS: BLOOD UREA NITROGEN 13 MG/DL (7-18); CALCIUM LEVEL 8.8 MG/DL (8.5-10.1); CARBON DIOXIDE LEVEL 30 MEQ/L (21-32); CHLORIDE LEVEL 103 MEQ/L (98-107); CREATININE FOR GFR 0.86 MG/DL (0.70-1.30); GLOMERULAR FILTRATION RATE > 60.0 (>60); GLUCOSE, FASTING 108 MG/DL (70-100); POTASSIUM SERUM 4.5 MEQ/L (3.5-5.1); SODIUM LEVEL 138 MEQ/L (136-145)
[2022-07-26] MEDS: HEPARIN SOD (PORCINE) 5000UNITS/ML 1ML VIAL/SYRINGE SC SCH (07:56)
[2022-07-26] MEDS: MULTIVITAMINS/MINERALS THERAP 1 TAB PO SCH (08:00)
[2022-07-26] MEDS: FERROUS SULFATE 325MG TAB PO SCH (08:00)
[2022-07-26] MEDS: ASPIRIN 81MG ENTERIC TABLET PO SCH (08:00)
[2022-07-26] MEDS: ASCORBIC ACID 500 MG TAB PO SCH (08:00)
[2022-07-26] MEDS: FOLIC ACID 1MG TAB PO SCH (08:00)
[2022-07-26] MEDS: IBUPROFEN 400MG TAB PO SCH ×2 (08:01→11:48)
[2022-07-26] MEDS ORDERED: oxyCODONE 5MG TAB PO ONE ×2 (08:15→17:00)
[2022-07-26] MEDS ORDERED: OXYC-141 PO (11:28)
[2022-07-26] MEDS ORDERED: OXYC-1 PO (11:28)
[2022-07-26] MEDS ORDERED: SENN-52 PO (11:28)
[2022-07-26] MEDS ORDERED: MOM30SS2 PO (11:28)
[2022-07-26] MEDS ORDERED: TRAZ-257 PO (11:28)
[2022-07-26] MEDS ORDERED: ASPI-551 PO (11:28)
[2022-07-26] MEDS ORDERED: oxyCODONE 15 MG CR TAB PO ONE ×2 (12:00)
== END 2022-07-26 12:50 | disposition home or self-care (01) | DRG 308 ==
LOC: M ED 21:04 → EDBD 21:04 → M ED INP 07-18 01:33 → ENRESERV 07-18 02:12 → M MSPAV 07-18 02:45
PROVIDERS: ADMIT Family Medicine; ATTEND General Practice
PROC: 0QS734Z Reposition Left Upper Femur with Internal Fixation Device, Percutaneous Approach (ICD-10-PCS; 2022-07-18)
PROC: BQ11ZZZ Fluoroscopy of Left Hip (ICD-10-PCS; 2022-07-18)
PROC: 0QS706Z Reposition Left Upper Femur with Intramedullary Internal Fixation Device, Open Approach (ICD-10-PCS; principal; 2022-07-18 13:00)
PROC: 30233N1 Transfusion of Nonautologous Red Blood Cells into Peripheral Vein, Percutaneous Approach (ICD-10-PCS; 2022-07-22)
DX: S72.22XA Displaced subtrochanteric fracture of left femur, initial encounter for closed fracture (principal); W01.0XXA Fall on same level from slipping, tripping and stumbling without subsequent striking against object, initial encounter; Y92.009 Unspecified place in unspecified non-institutional (private) residence as the place of occurrence of the external cause; G47.00 Insomnia, unspecified; F17.210 Nicotine dependence, cigarettes, uncomplicated; Z20.822 Contact with and (suspected) exposure to COVID-19; Z79.899 Other long term (current) drug therapy; M97.8XXA Periprosthetic fracture around other internal prosthetic joint, initial encounter; Z96.642 Presence of left artificial hip joint; F10.939 Alcohol use, unspecified with withdrawal, unspecified; D62 Acute posthemorrhagic anemia; K59.00 Constipation, unspecified; T40.2X5A Adverse effect of other opioids, initial encounter; E87.1 Hypo-osmolality and hyponatremia

== ENCOUNTER → 2022-08-17 | Outpatient (CLI) | payer OTHER ==
[~2022-08-17] MED LIST changes: +CYCL-707 PO; +MOM30SS2 PO; +OXYC-1 PO; +OXYC-141 PO; +SENN-52 PO; +TRAZ-257 PO
== END ==
LOC: M SOG 11:41
PROVIDERS: ATTEND Orthopaedic Surgery
DX: S72.002D Fracture of unspecified part of neck of left femur, subsequent encounter for closed fracture with routine healing (principal)

== ENCOUNTER → 2022-09-16 | Outpatient (CLI) | payer OTHER, MEDICAID | LOC: M SOG 08:03 | PROVIDERS: ATTEND Orthopaedic Surgery | DX: S72.002D Fracture of unspecified part of neck of left femur, subsequent encounter for closed fracture with routine healing (principal) ==

== ENCOUNTER → 2022-10-19 | Outpatient (CLI) | payer OTHER, MEDICAID | LOC: M SOG 08:07 | PROVIDERS: ATTEND Orthopaedic Surgery | DX: S72.142D Displaced intertrochanteric fracture of left femur, subsequent encounter for closed fracture with routine healing (principal) ==

== ENCOUNTER → 2022-11-16 | Outpatient (CLI) | payer OTHER, MEDICAID | LOC: M SOG 09:40 | PROVIDERS: ATTEND Orthopaedic Surgery | DX: S72.22XD Displaced subtrochanteric fracture of left femur, subsequent encounter for closed fracture with routine healing (principal); W18.30XD Fall on same level, unspecified, subsequent encounter ==

== ENCOUNTER → 2023-01-04 | Outpatient (CLI) | payer OTHER, MEDICAID | LOC: M SOG 08:05 | PROVIDERS: ATTEND Orthopaedic Surgery | DX: S72.002A Fracture of unspecified part of neck of left femur, initial encounter for closed fracture (principal); X58.XXXA Exposure to other specified factors, initial encounter ==

== ENCOUNTER → 2023-03-25 | Outpatient (CLI) | payer OTHER, MEDICAID | LOC: M SOG 08:12 | PROVIDERS: ATTEND Orthopaedic Surgery | DX: S72.22XD Displaced subtrochanteric fracture of left femur, subsequent encounter for closed fracture with routine healing (principal) ==

== ENCOUNTER → 2023-04-19 | Outpatient (CLI) | payer OTHER ==
[2023-04-19 13:43] LABS: HEMATOCRIT 45.2 % (42.0-52.0); HEMOGLOBIN 15.2 g/dl (13.5-17.5); MEAN CORPUSCULAR HEMOGLOBIN 33.7 pg (27.0-33.0); MEAN CORPUSCULAR HGB CONC 33.6 g/dl (32.0-36.5); MEAN CORPUSCULAR VOLUME 100.2 fl (80.0-96.0); PLATELET COUNT, AUTOMATED 265 10^3/uL (150-450); RED BLOOD COUNT 4.51 10^6/uL (4.30-6.10); WHITE BLOOD COUNT 6.1 10^3/uL (4.0-10.0)
[2023-04-19 14:11] LABS: HEMOGLOBIN A1c 5.4 % (4.0-6.0)
[2023-04-19 14:17] LABS: ALBUMIN 3.8 G/DL (3.2-5.2); ALKALINE PHOSPHATASE 77 U/L (46-116); ALT/SGPT 22 U/L (7.0-40); AST/SGOT 18 U/L (<34); BILIRUBIN,TOTAL 0.7 MG/DL (0.3-1.2); BLOOD UREA NITROGEN 20 MG/DL (9-23); CALCIUM LEVEL 9.1 MG/DL (8.5-10.1); CARBON DIOXIDE LEVEL 28 MMOL/L (20-31); CHLORIDE LEVEL 104 MMOL/L (98-107); CHOLESTEROL LEVEL 196 MG/DL (<200); CHOLESTEROL RISK RATIO 3.07 (<5); CREATININE FOR GFR 0.89 MG/DL (0.70-1.30); GLOMERULAR FILTRATION RATE > 60.0 (>60); GLUCOSE, FASTING 100 MG/DL (60-100); HDL CHOLESTEROL 63.8 MG/DL (>40); LDL CHOLESTEROL 109.2 MG/DL (<100); NON-HDL-C 132.2 MG/DL; POTASSIUM SERUM 4.6 MMOL/L (3.5-5.1); SODIUM LEVEL 139 MMOL/L (136-145); THYROID STIMULATING HORMONE 0.779 uIU/ML (0.55-4.78); TOTAL 25(OH) VITAMIN D 77.2 NG/ML (20.0-100.0); TOTAL PROTEIN 6.6 G/DL (5.7-8.2); TRIGLYCERIDES LEVEL 115 MG/DL (<150)
[2023-04-19 14:19] LABS: FREE T4 1.05 NG/DL (0.89-1.76)
== END ==
LOC: M PLALAB 10:55
PROVIDERS: ATTEND Student in an Organized Health Care Education/Training Program
DX: F10.10 Alcohol abuse, uncomplicated (principal); S72.002D Fracture of unspecified part of neck of left femur, subsequent encounter for closed fracture with routine healing; F51.04 Psychophysiologic insomnia; Z13.1 Encounter for screening for diabetes mellitus; Z13.220 Encounter for screening for lipoid disorders

== ENCOUNTER → 2023-05-19 | Outpatient (CLI) | payer OTHER ==
[~2023-05-19] MED LIST changes: +BARIUM SULFATE 700 MG TABLET (E-Z-DISK) As Ordered ONE; +E-Z-GAS II EFFERVESCENT PACKET (SODIUM BICARB./CITRIC ACID/SIMETHICONE) As Ordered ONE; +E-Z-PAQUE 96% w/w SUSP 176GM BTL As Ordered ONE; +VARIBAR NECTAR 40% w/v 240ML SUSP BTL As Ordered ONE; +VARIBAR PUDDING 40% w/v 230ML TUBE As Ordered ONE
== END ==
LOC: M RAD 11:44
PROVIDERS: ATTEND Otolaryngology
DX: R13.19 Other dysphagia (principal)

== ENCOUNTER → 2023-05-26 | Outpatient (CLI) | payer OTHER ==
[~2023-05-26] MED LIST changes: -BARIUM SULFATE 700 MG TABLET (E-Z-DISK) As Ordered ONE; -E-Z-GAS II EFFERVESCENT PACKET (SODIUM BICARB./CITRIC ACID/SIMETHICONE) As Ordered ONE; -E-Z-PAQUE 96% w/w SUSP 176GM BTL As Ordered ONE; -VARIBAR NECTAR 40% w/v 240ML SUSP BTL As Ordered ONE; -VARIBAR PUDDING 40% w/v 230ML TUBE As Ordered ONE
== END ==
LOC: M SOG 07:55
PROVIDERS: ATTEND Orthopaedic Surgery
DX: S72.22XD Displaced subtrochanteric fracture of left femur, subsequent encounter for closed fracture with routine healing (principal)

== ENCOUNTER → 2023-06-22 | Outpatient (CLI) | payer OTHER | LOC: M PAIN 08:00 | PROVIDERS: ATTEND Anesthesiology | DX: M25.552 Pain in left hip (principal); M25.562 Pain in left knee; M79.2 Neuralgia and neuritis, unspecified; Z86.59 Personal history of other mental and behavioral disorders; Z88.8 Allergy status to other drugs, medicaments and biological substances; Z79.899 Other long term (current) drug therapy ==

== ENCOUNTER → 2023-08-26 | Outpatient (CLI) | payer OTHER | LOC: M SOG 08:16 | PROVIDERS: ATTEND Orthopaedic Surgery | DX: M25.552 Pain in left hip (principal); Z87.81 Personal history of (healed) traumatic fracture ==

== ENCOUNTER → 2023-09-14 | Outpatient (CLI) | payer OTHER ==
[~2023-09-14] MED LIST changes: +CALC500T31 PO; +E-Z-GAS II EFFERVESCENT PACKET (SODIUM BICARB./CITRIC ACID/SIMETHICONE) As Ordered ONE; +E-Z-HD 98% w/w 340GM SUSP BTL As Ordered ONE; +E-Z-PAQUE 96% w/w SUSP 176GM BTL As Ordered ONE; +GABA-282 PO; +MELO7.5T35 PO; +MULT400T10 PO; +PANT40TA29 PO; +QUET50TA4 PO
== END ==
LOC: M RAD 08:18
PROVIDERS: ATTEND Physician Assistant Medical
DX: R13.10 Dysphagia, unspecified (principal); K21.9 Gastro-esophageal reflux disease without esophagitis

== ENCOUNTER 2023-09-22 13:06 | Day surgery (SDC) | payer OTHER ==
[~2023-09-22] VITALS: Ht 170.2 cm; Wt 92.1 kg
[~2023-09-22 13:06] MED LIST changes: -E-Z-GAS II EFFERVESCENT PACKET (SODIUM BICARB./CITRIC ACID/SIMETHICONE) As Ordered ONE; -E-Z-HD 98% w/w 340GM SUSP BTL As Ordered ONE; -E-Z-PAQUE 96% w/w SUSP 176GM BTL As Ordered ONE; +NS 1,000 ML IV ONE
[2023-09-22 14:09] VITALS: TEMP 98.3
[2023-09-22] MEDS ORDERED: LIDOCAINE 2% 100MG/5ML SDV (FOR ANES.) As Ordered ONE (14:13)
[2023-09-22] MEDS ORDERED: fentaNYL 100 MCG/2 ML INJECTION As Ordered ONE (14:13)
[2023-09-22] MEDS ORDERED: propofoL 200 MG/20 ML VIAL As Ordered ONE (14:14)
[2023-09-22 14:31] VITALS: BP 140/89; O2SAT 99
== END 2023-09-22 14:39 | disposition home or self-care (01) ==
LOC: M OPP 13:06
PROVIDERS: ATTEND Internal Medicine Gastroenterology
DX: K44.9 Diaphragmatic hernia without obstruction or gangrene (principal); K22.89 Other specified disease of esophagus; R13.10 Dysphagia, unspecified; F17.210 Nicotine dependence, cigarettes, uncomplicated; Z79.1 Long term (current) use of non-steroidal anti-inflammatories (NSAID)
CPT/HCPCS: 43239; 88305; J3010

== ENCOUNTER → 2024-07-31 | Outpatient (CLI) | payer MEDICAID, OTHER ==
[~2024-07-31] MED LIST changes: -NS 1,000 ML IV ONE
[2024-07-31 18:45] LABS: HEPATITIS B SURFACE ANTIGEN NEGATIVE (NEGATIVE)
[2024-07-31 18:58] LABS: HIV 1&2 SCREEN NEGATIVE (NEGATIVE)
[2024-07-31 19:06] LABS: HEPATITIS C VIRUS ABY INDEX < 0.02 INDEX (<0.8)
[2024-07-31 19:07] LABS: HEPATITIS B CORE ANTIBODY IGM NEGATIVE (NEGATIVE)
[2024-07-31 19:15] LABS: GC DNA AMPLIFICATION NEGATIVE (NEGATIVE)
== END ==
LOC: M PLALAB 15:27
PROVIDERS: ATTEND Student in an Organized Health Care Education/Training Program
DX: Z11.3 Encounter for screening for infections with a predominantly sexual mode of transmission (principal)